=== PATIENT | male | born 1990 | race Caucasian/White ===

== ENCOUNTER 2019-07-28 11:52 | Inpatient (IN) | payer OTHER ==
--- NOTE | 2019-07-28 16:29 | BHS.RME ---
Substance Use & Tx History - Substance Use History Opiates (Heroin) Substance amount: heroin- 1-2 bundles/day Frequency of use: Daily Substance route: Injection (ex: intravenous or skin popping) Date of Last Use: 07/28/19 Cocaine (Powder) Substance amount: 1 gram Substance route: Injection (ex: intravenous or skin popping) Date of Last Use: 07/27/19 Benzodiazepines Substance amount: xanax 3 tabs Frequency of use: Daily Substance route: Oral Date of Last Use: 07/27/19 - Last Treatment Date of last treatment: 06/2019 Where was last treatment: Detox Physical/Psych/Mental Status - Behavior Eye Contact: Normal - Cooperativeness Cooperativeness: Cooperative - Physical Health Problems Is patient presently having any pain?: No Does patient presently have any injuries (include location): No Does patient currently have a fever: No Is patient : No COWS - Scale Resting Pulse: 2= [place] 101-120 Sweatin= Chills/Flushing Restless Observation: 1= Difficult to Sit Still Pupil Size: 1= Pupils >than Normal Bone or Joint Aches: 1= Mild Discomfort Runny Nose/ Eye Tearin= Nasal Congestion GI Upset > 30mins: 2= Nausea/Diarrhea Tremor Observation: 1= Tremor [place], Not Seen Yawning Observation: 1= 1-2x During Session Anxiety or Irritability: 1=Feels Anxious/Irritable Goose Flesh Skin: 3=Piloerection COWS Score: 15 CIWA Nausea/Vomitin-Mild Nausea/No Vomiting Muscle Tremors: 3 Anxiety: 3 Agitation: 3 Paroxysmal Sweats: No Perspiration Orientation: 0-Oriented Tacttile Disturbances: 0-None Auditory Disturbances: 0-None Visual Disturbances: 0-None Headache: 2-Mild CIWA-Ar Total Score: 12 Treatment Recommendation - Level of Care Level of Care: Acute Medical (admit for detox from opiates and xanax)
--- NOTE | 2019-07-28 17:06 | HP ---
COWS - Scale Resting Pulse: 2= [place] 101-120 Sweatin= Chills/Flushing Restless Observation: 1= Difficult to Sit Still Pupil Size: 1= Pupils >than Normal Bone or Joint Aches: 1= Mild Discomfort Runny Nose/ Eye Tearin= Nasal Congestion GI Upset > 30mins: 2= Nausea/Diarrhea Tremor Observation: 1= Tremor [place], Not Seen Yawning Observation: 1= 1-2x During Session Anxiety or Irritability: 1=Feels Anxious/Irritable Goose Flesh Skin: 3=Piloerection COWS Score: 15 CIWA Score Nausea/Vomitin-Mild Nausea/No Vomiting Muscle Tremors: 3 Anxiety: 3 Agitation: 3 Paroxysmal Sweats: No Perspiration Orientation: 0-Oriented Tacttile Disturbances: 1-Very Mild Itch/Numbness Auditory Disturbances: 0-None Visual Disturbances: 0-None Headache: 2-Mild CIWA-Ar Total Score: 13 - Admission Criteria [facility] Guidelines: Admission for Medically Managed Detox: Requires at least one of the followin. CIWA greater than 12 2. Seizures within the past 24 hours 3. Delirium tremens within the past 24 hours 4. Hallucinations within the past 24 hours 5. Acute intervention needed for co occurring medical disorder 6. Acute intervention needed for co occurring psychiatric disorder 7. Severe withdrawal that cannot be handled at a lower level of care (continued vomiting, continued diarrhea, abnormal vital signs) requiring intravenous medication and/or fluids 8. Admitting History and Physical - Admission Chief Complaint: i need help to stop using heroin,xanax,alcohol History of Present Illness: this 29 years old male with heroin alcohol,xanax dependence,seeing detox, withdrawal symptom, withdrawal symptom need help denied seizure denied syncope bipolar disorder,manic depressive History Source: Patient Limitations to Obtaining History: No Limitations - Past Medical History STAFFING AND SCHEDULING COORDINATOR: Yes: Seizure Psych: Yes: Bipolar, Other (ptsd) - Smoking History Smoking history: Current every day smoker Have you smoked in the past 12 months: Yes Aproximately how many cigarettes per day: 20 - Alcohol/Substance Use Hx Alcohol Use: No History of Substance Use: reports: Cocaine, Heroin, Tranquilizers - Social History Usual Living Arrangement: Yes: With Parent ADL: Support Services Occupation: unemployed History of Recent Travel: No Admission ROS BHS - HPI Chief Complaint: i need help to stop using heroin,xanax,alcohol abused Allergies/Adverse Reactions: Allergies Allergy/AdvReac Type Severity Reaction Status Date / Time No Known Allergies Allergy Verified 07/28/19 16:57 History of Present Illness: this 29years old male with heroin,xanax dependence,alcohol abused, seeking help to stop,withdrawal symptom seizure last 2017 syncope bipolar disorder living with mother,unemployed longest period of sobriety 1 year nicotine dependence plan for rehab after detox Exam Limitations: No Limitations - Ebola screening Have you traveled outside of the country in the last 21 days: No Have you had contact with anyone from an Ebola affected area: No Have you been sick,other than usual withdrawal symptoms: No Do you have a fever: No - Review of Systems Constitutional: Chills, Loss of Appetite, Malaise, Night Sweats, Changes in sleep EENT: reports: Tearing, Nose Congestion Respiratory: reports: No Symptoms reported Cardiac: reports: Palpitations GI: reports: Diarrhea, Nausea, Vomiting, Abdominal cramping : reports: No Symptoms Reported, Lesions Musculoskeletal: reports: Joint Pain, Muscle Pain Integumentary: reports: Dryness Neuro: reports: Headache, Tremors Endocrine: reports: No Symptoms Reported Hematology: reports: No Symptoms Reported Psychiatric: reports: No Sypmtoms Reported, Judgement Intact, Mood/Affect Appropiate, Orientated x3, Anxious, Depressed, other (bipolar disorder) Patient History - Patient Medical History Hx Anemia: No Hx Asthma: No Hx Chronic Obstructive Pulmonary Disease (COPD): No Hx Cancer: No Hx Cardiac Disorders: No Hx Congestive Heart Failure: No Hx Hypertension: No Hx Hypercholesterolemia: No Hx Pacemaker: No HX Cerebrovascular Accident: No Hx Seizures: No Hx Dementia: No Hx Diabetes: No Hx Gastrointestinal Disorders: No Hx Liver Disease: No Hx Genitourinary Disorders: No Hx Sexually Transmitted Disorders: No Hx Renal Disease (ESRD): No Hx Thyroid Disease: No Hx Human Immunodeficiency Virus (HIV): No (last 06/2019 negative) Hx Hepatitis C: No Hx Depression: Yes Hx Suicide Attempt: No Hx Bipolar Disorder: Yes Hx Schizophrenia: No Other Medical History: no suicidal.no homicidal,insomnia,ptsd - Patient Surgical History Past Surgical History: No Anesthesia Reaction: No - PPD History Previous Implant?: Yes Documented Results: Negative w/o proof Implanted On Prior [facility] Admission?: Yes Date: 05/04/15 PPD to be Administered?: Yes - Smoking Cessation Smoking history: Current every day smoker Have you smoked in the past 12 months: Yes Aproximately how many cigarettes per day: 20 Cigars Per Day: 0 Hx Chewing Tobacco Use: No Initiated information on smoking cessation: Yes 'Breaking Loose' booklet given: 07/28/19 - Substance & Tx. History Hx Alcohol Use: Yes Hx Substance Use: Yes Substance Use Type: Alcohol, Cocaine, Heroin, Tranquilizers Hx Substance Use Treatment: Yes ([address] [place] [address] but not completed) - Substances abused Heroin Substance route: Injection Frequency: Daily Amount used: 15 to 20 bags Age of first use: 17 Date of last use: 07/27/19 Alprazolam (Xanax) Substance route: Oral Frequency: Daily Amount used: 6 to 8 mgs Age of first use: 16 Date of last use: 07/27/19 Cocaine Substance route: Injection Frequency: 3-6 times per week Amount used: 40$ Age of first use: 17 Date of last use: 07/27/19 Alcohol Substance route: Oral Frequency: 3-6 times per week Amount used: 1 litre of anival Age of first use: 12 Date of last use: 07/27/19 Admission Physical Exam BHS - Vital Signs Vital Signs: Vital Signs Temperature 97.7 F 07/28/19 17:09 Pulse Rate 101 H 07/28/19 17:09 Respiratory Rate 18 07/28/19 17:09 Blood Pressure 140/95 07/28/19 17:09 O2 Sat by Pulse Oximetry (%) - Physical General Appearance: Yes: Moderate Distress, Severe Distress, Alcohol on Breath, Irritable, Anxious HEENTM: Yes: Normal ENT Inspection, [place], Pharynx Normal Respiratory: Yes: Within Normal Limits, Lungs Clear, Normal Breath Sounds Neck: Yes: Within Normal Limits, Supple, Trachea in good position Breast: Yes: Within Normal Limits Cardiology: Yes: Tachycardia Abdominal: Yes: Within Normal Limits, Normal Bowel Sounds, Non Tender, Flat, Soft Genitourinary: Yes: Within Normal Limits Back: Yes: Muscle Spasm Extremities: Yes: Tremors 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, Fully Oriented, Alert, Motor Strength 5/5 Integumentary: Yes: Dry Lymphatic: Yes: Within Normal Limits - Diagnostic (1) Opioid dependence with withdrawal Current Visit: Yes Status: Acute (2) Cocaine dependence Current Visit: No Status: Acute (3) Insomnia Current Visit: No Status: Acute (4) Nicotine dependence Current Visit: No Status: Acute (5) Weight loss Current Visit: No Status: Acute (6) Uncomplicated sedative, hypnotic or anxiolytic withdrawal Current Visit: Yes Status: Acute (7) Cocaine dependence Current Visit: Yes Status: Acute (8) Withdrawal seizures Current Visit: Yes Status: Acute (9) Bipolar disorder Current Visit: Yes Status: Acute (10) PTSD (post-traumatic stress disorder) Current Visit: Yes Status: Acute (11) IVDU (intravenous drug user) Current Visit: Yes Status: Acute Cleared for Admission S - Detox or Rehab S Level of Care: Medically Managed Detox Regimen/Protocol: Methadone/Valium Breathalyzer - Breathalyzer Breathalyzer: 0 Urine Drug Screen - Test Device Lot number: [id number] Expiration date: 05/06/21 - Control Is test valid?: Yes - Results Drug screen NEGATIVE: No Urine drug screen results: DAISHA-Cocaine, FEN-Fentanyl, MOP-Opiates, BZO- Benzodiazepines Inpatient Rehab Admission - Rehab Decision to Admit Inpatient rehab admission?: No
[2019-07-28 17:15] VITALS: BMI 25.1
[2019-07-28] MEDS ORDERED: ACETAMINOPHEN 325 MG TABLET (FP) PO PRN ×2 (17:22)
[2019-07-28] MEDS ORDERED: cloNIDine HCL 0.1 MG TABLET PO PRN (17:22)
[2019-07-28] MEDS ORDERED: BISMUTH SUBSALICYLATE 524 MG/30 ML UD PO PRN (17:22)
[2019-07-28] MEDS ORDERED: MENTHOL/PHENOL 1 EACH UD MM PRN (17:22)
[2019-07-28] MEDS ORDERED: IBUPROFEN 400 MG TABLET (FP) PO PRN (17:22)
[2019-07-28] MEDS ORDERED: METHADONE HCL 10 MG TABLET (FOR DETOX USE ONLY) PO ONE (17:22)
[2019-07-28] MEDS ORDERED: MAG HYDROX/AL HYDROX/SIMETH 30 ML UNIT-DOSE CUP PO PRN (17:22)
[2019-07-28] MEDS ORDERED: MAGNESIUM HYDROX 2400MG/30ML ORAL SUSPENSION 30 ML CUP PO PRN (17:22)
[2019-07-28] MEDS ORDERED: MAGNESIUM CITRATE 300 ML BOTTLE PO PRN (17:22)
[2019-07-28] MEDS: NICOTINE 21 MG/24 HOURS TOPICAL PATCH TD SCH (18:33)
[2019-07-28] MEDS: diazePAM 5 MG TABLET PO PRN (18:36)
[2019-07-28] MEDS: NICOTINE POLACRILEX 2 MG GUM BUC PRN ×2 (18:42→22:45)
[2019-07-28] MEDS: diazePAM 5 MG TABLET PO SCH (22:43)
[2019-07-28] MEDS: THIAMINE HCL 100 MG TABLET (FP) PO SCH (22:43)
[2019-07-28] MEDS: MELATONIN 5 MG TABLETS PO PRN (22:46)
[2019-07-29] MEDS: diazePAM 5 MG TABLET PO SCH ×3 (05:50→22:08)
[2019-07-29] MEDS: hydrOXYzine PAMOATE 25 MG CAPSULE (FP) PO PRN ×2 (06:12→20:00)
[2019-07-29] MEDS ORDERED: METHADONE HCL 10 MG TABLET (FOR DETOX USE ONLY) ONE (09:02)
[2019-07-29] MEDS ORDERED: METHADONE HCL 5 MG TABLET (FOR DETOX USE ONLY) ONE (09:03)
[2019-07-29] MEDS: PRENATAL VITAMINS W/ FOLIC ACID TABLET (FP) PO SCH (09:39)
[2019-07-29] MEDS: diazePAM 5 MG TABLET PO PRN ×2 (09:40→17:13)
[2019-07-29] MEDS: NICOTINE 21 MG/24 HOURS TOPICAL PATCH TD SCH (09:40)
[2019-07-29] MEDS: NICOTINE POLACRILEX 2 MG GUM BUC PRN ×2 (09:44→17:45)
[2019-07-29] MEDS ORDERED: METHADONE (DETOX) 20 MG, METHADONE (DETOX) 5 MG PO ONE (10:00)
[2019-07-29 10:15] LABS: ALBUMIN 3.5 g/dl (3.4-5.0); BILIRUBIN,TOTAL 0.3 mg/dL (0.2-1); BLOOD UREA NITROGEN 18.3 mg/dL (7-18); CALCIUM 8.8 mg/dL (8.5-10.1); CREATININE 0.7 mg/dL (0.55-1.3); POTASSIUM 4.1 mmol/L (3.5-5.1); TOT PROT 6.4 g/dl (6.4-8.2)
[2019-07-29 10:22] LABS: HEMATOCRIT 37.3 % (35.4-49); HEMOGLOBIN 12.9 GM/dL (11.7-16.9); MCH 31.6 pg (25.7-33.7); MCHC 34.6 g/dl (32.0-35.9); MEAN CELL VOLUME 91.3 fl (80-96); MEAN PLT VOLUME 8.4 fl (7.5-11.1); PLATELET COUNT 223 K/MM3 (134-434); RBC 4.08 M/mm3 (4.00-5.60); RDW 12.8 % (11.9-15.9); WHITE BLOOD COUNT 5.8 K/mm3 (4.0-10.0)
--- NOTE | 2019-07-29 12:54 | CONSULT ---
[facility] Psychiatric Consult - Data Date of interview: 07/29/19 Admission source: [facility] Identifying data: Revisit to [facility] and admission to [address] [place] [address] for this 29 y/o -[place] male self-referred for detoxification treatment. NANCY issues : heroin, benzodiazepine (xanax), alcohol, cocaine, cannabis, nicotine. Patient is , no children of his own, domiciled, unemployed and supported by spouse + relatives. Substance Abuse History: Discussed with patient. Details in current [facility] report as follows : Smoking history: Current every day smoker. Have you smoked in the past 12 months: Yes. Aproximately how many cigarettes per day: 20. Cigars Per Day: 0. Hx Chewing Tobacco Use: No. Initiated information on smoking cessation : Yes. 'Breaking Loose' booklet given: 07/28/19. - Substance & Tx. History. Hx Alcohol Use: Yes. Hx Substance Use: Yes. Substance Use Type: Alcohol, Cocaine, Heroin, Tranquilizers. Hx Substance Use Treatment: Yes ([address] [place], [place] [address] but not completed). - Substances abused. Heroin. Substance route: Injection. Frequency: Daily. Amount used: 15 to 20 bags. Age of first use: 17. Date of last use: 07/27/19. Alprazolam (Xanax). Substance route: Oral. Frequency: Daily. Amount used: 6 to 8 mgs. Age of first use: 16. Date of last use: 07/27/19. Cocaine. Substance route: Injection. Frequency : 3-6 times per week. Amount used: 40$. Age of first use: 17. Date of last use: 07/27/19. Alcohol. Substance route: Oral. Frequency: 3-6 times per week. Amount used: 1 litre of anival. Age of first use: 12. Date of last use: 07/27/19 Medical History: Patient endorses good general health. Psychiatric History: Patient endorses a distant history of one psychiatric hospitalization (age 17) at the [facility]. Mr Jaquez indicates that he was diagnosed with MDD, Anxiety Disorder and PTSD. Used to be on suboxone maintenance and trazodone + lorazepam. Non-compliant with medications for weeks. Patient denies having contact with OPD care providers. Denies history of suicide attempts. Physical/Sexual Abuse/Trauma History: Patient denies. Additional Comment: Urine drug screen results: DAISHA-Cocaine, FEN-Fentanyl, MOP- Opiates, BZO-Benzodiazepines. Noted. Mental Status Exam - Mental Status Exam Alert and Oriented to: Time, Place, Person Cognitive Function: Good Patient Appearance: Well Groomed Mood: Withdrawn Affect: Mood Congruent Patient Behavior: Fatigued, Appropriate, Cooperative Speech Pattern: Clear, Appropriate Voice Loudness: Normal Thought Process: Goal Oriented Thought Disorder: Not Present Hallucinations: Denies Suicidal Ideation: Denies Homicidal Ideation: Denies Insight/Judgement: Poor Sleep: Poorly, Difficulty falling asleep Appetite: Good Gait/Station: Normal Psychiatric Findings - Problem List ([place] 1, 2,3) (1) Alcohol use disorder Current Visit: Yes Status: Chronic (2) Opioid dependence with withdrawal Current Visit: Yes Status: Acute (3) Uncomplicated sedative, hypnotic or anxiolytic withdrawal Current Visit: Yes Status: Acute (4) Cocaine dependence Current Visit: Yes Status: Chronic (5) Cannabis dependence Current Visit: Yes Status: Chronic (6) Nicotine dependence Current Visit: Yes Status: Chronic (7) Substance induced mood disorder Current Visit: Yes Status: Chronic (8) History of posttraumatic stress disorder (PTSD) Current Visit: Yes Status: Chronic Comment: As per self-report. Asymptomatic at time of this examination. (9) Insomnia Current Visit: Yes Status: Chronic (10) Non-compliance Current Visit: Yes Status: Chronic Comment: Lost to follow-up. - Initial Treatment Plan Initial Treatment Plan: Psychoeducation. Sleep hygiene. Detoxification. AA/NA meetings. MAT services discussed in this session. Patient agrees only to detoxification protocol. Informed consent given. Observation.
--- NOTE | 2019-07-29 13:14 | PN ---
[facility] CIWA - CIWA Score Nausea/Vomitin-Mild Nausea/No Vomiting Muscle Tremors: 3 Anxiety: 3 Agitation: 1-Slight > Activity Paroxysmal Sweats: 2 Orientation: 0-Oriented Tacttile Disturbances: 0-None Auditory Disturbances: 0-None Visual Disturbances: 1-Very Mild Sensitivity Headache: 1-Very Mild CIWA-Ar Total Score: 12 S COWS - Scale Resting Pulse: 1= [place] 81-100 Sweatin= Chills/Flushing Restless Observation: 0= Sits Still Pupil Size: 1= Pupils >than Normal Bone or Joint Aches: 0= None Runny Nose/ Eye Tearin= None GI Upset > 30mins: 2= Nausea/Diarrhea Tremor Observation of Outstretched Hands: 2= Slight Tremor Visible Yawning Observation: 0= None Anxiety or Irritability: 2=Irritable/Anxious Goose Flesh Skin: 3=Piloerection COWS Score: 12 S Progress Note (SOAP) Subjective: 29 years old male admitted on 07/28/19 for alcohol benzo opiate withdrawal sx management patient requests librium for alcohol withdrawal that the patient is taking valium for benzo withdrawal patient refuses to give up valium patient wants valium and librium health teaching on risks of benzo Objective: 07/29/19 13:15 Vital Signs Temperature 97.8 F 07/29/19 08:36 Pulse Rate 86 07/29/19 08:36 Respiratory Rate 18 07/29/19 08:36 Blood Pressure 117/78 07/29/19 08:36 O2 Sat by Pulse Oximetry (%) Laboratory Last Values WBC 5.8 K/mm3 (4.0-10.0) 07/29/19 07:30 RBC 4.08 M/mm3 (4.00-5.60) 07/29/19 07:30 Hgb 12.9 GM/dL (11.7-16.9) 07/29/19 07:30 Hct 37.3 % (35.4-49) 07/29/19 07:30 MCV 91.3 fl (80-96) 07/29/19 07:30 MCH 31.6 pg (25.7-33.7) 07/29/19 07:30 MCHC 34.6 g/dl (32.0-35.9) 07/29/19 07:30 RDW 12.8 % (11.9-15.9) 07/29/19 07:30 Plt Count 223 K/MM3 (134-434) 07/29/19 07:30 MPV 8.4 fl (7.5-11.1) 07/29/19 07:30 Sodium 141 mmol/L (136-145) 07/29/19 07:30 Potassium 4.1 mmol/L (3.5-5.1) 07/29/19 07:30 Chloride 107 mmol/L (98-107) 07/29/19 07:30 Carbon Dioxide 31 mmol/L (21-32) 07/29/19 07:30 Anion Gap 3 MMOL/L (8-16) L 07/29/19 07:30 BUN 18.3 mg/dL (7-18) H 07/29/19 07:30 Creatinine 0.7 mg/dL (0.55-1.3) 07/29/19 07:30 Est GFR (CKD-EPI)AfAm 146.77 07/29/19 07:30 Est GFR (CKD-EPI)NonAf 126.64 07/29/19 07:30 Random Glucose 93 mg/dL (74-106) 07/29/19 07:30 Calcium 8.8 mg/dL (8.5-10.1) 07/29/19 07:30 Total Bilirubin 0.3 mg/dL (0.2-1) 07/29/19 07:30 AST 24 U/L (15-37) 07/29/19 07:30 ALT 23 U/L (13-61) 07/29/19 07:30 Alkaline Phosphatase 124 U/L (45-117) H 07/29/19 07:30 Total Protein 6.4 g/dl (6.4-8.2) 07/29/19 07:30 Albumin 3.5 g/dl (3.4-5.0) 07/29/19 07:30 RPR Titer Nonreactive (NONREACTIVE) 07/29/19 07:30 lab noted Assessment: 07/29/19 13:15 alcohol benzo opiate withdrawal Plan: valium and methadone regiments
[2019-07-29] MEDS: METHOCARBAMOL 500 MG TABLET PO PRN (17:14)
[2019-07-29] MEDS: MIRTAZAPINE 15 MG TABLET (FP) PO SCH (22:08)
[2019-07-29] MEDS: THIAMINE HCL 100 MG TABLET (FP) PO SCH (22:08)
[2019-07-29] MEDS: MELATONIN 5 MG TABLETS PO PRN (22:08)
[2019-07-30] MEDS: diazePAM 5 MG TABLET PO SCH ×2 (05:52→17:47)
[2019-07-30] MEDS ORDERED: METHADONE HCL 10 MG TABLET (FOR DETOX USE ONLY) PO ONE (10:00)
[2019-07-30] MEDS: diazePAM 5 MG TABLET PO PRN ×3 (10:16→22:16)
[2019-07-30] MEDS: PRENATAL VITAMINS W/ FOLIC ACID TABLET (FP) PO SCH (10:16)
[2019-07-30] MEDS: NICOTINE 21 MG/24 HOURS TOPICAL PATCH TD SCH (10:17)
--- NOTE | 2019-07-30 11:08 | PN ---
[facility] CIWA - CIWA Score Nausea/Vomitin-Mild Nausea/No Vomiting Muscle Tremors: 2 Anxiety: 1-Mildly Anxious Agitation: 1-Slight > Activity Paroxysmal Sweats: 1-Minimal Palms Moist Orientation: 0-Oriented Tacttile Disturbances: 0-None Auditory Disturbances: 0-None Visual Disturbances: 0-None Headache: 1-Very Mild CIWA-Ar Total Score: 7 S COWS - Scale Resting Pulse: 1= [place] 81-100 Sweatin= Chills/Flushing Restless Observation: 1= Difficult to Sit Still Pupil Size: 1= Pupils >than Normal Bone or Joint Aches: 1= Mild Discomfort Runny Nose/ Eye Tearin= Nasal Congestion GI Upset > 30mins: 1= Stomach Cramp Tremor Observation of Outstretched Hands: 1= Tremor [place], Not Seen Yawning Observation: 1= 1-2x During Session Anxiety or Irritability: 1=Feels Anxious/Irritable Goose Flesh Skin: 0=Smooth Skin COWS Score: [address] [facility] Progress Note (SOAP) Subjective: pt here for detox from benzo and opiates, says he has trouble sleeping O: Vital Signs - 24 hr 07/29/19 07/29/19 07/29/19 12:38 16:45 20:46 Temperature 96.7 F L 97.4 F L 96.1 F L Pulse Rate 88 79 85 Respiratory 18 18 18 Rate Blood Pressure 104/67 124/72 109/77 07/30/19 07/30/19 07/30/19 00:30 03:30 06:08 Temperature 97.2 F L Pulse Rate 63 Respiratory 18 18 18 Rate Blood Pressure 98/61 07/30/19 07/30/19 06:30 08:36 Temperature 97.4 F L Pulse Rate 78 Respiratory 18 18 Rate Blood Pressure 97/67 Laboratory Tests 07/29/19 07/29/19 07/29/19 07:30 07:30 07:30 WBC 5.8 RBC 4.08 Hgb 12.9 Hct 37.3 MCV 91.3 MCH 31.6 MCHC 34.6 RDW 12.8 Plt Count 223 MPV 8.4 Sodium 141 Potassium 4.1 Chloride 107 Carbon Dioxide 31 Anion Gap 3 L BUN 18.3 H Creatinine 0.7 Est GFR (CKD-EPI)AfAm 146.77 Est GFR (CKD-EPI)NonAf 126.64 Random Glucose 93 Calcium 8.8 Total Bilirubin 0.3 AST 24 ALT 23 Alkaline Phosphatase 124 H Total Protein 6.4 Albumin 3.5 RPR Titer Nonreactive a/p: continue detox protocols trazodone prn for sleep, if melatonin does not work
[2019-07-30] MEDS: hydrOXYzine PAMOATE 25 MG CAPSULE (FP) PO PRN (15:39)
[2019-07-30] MEDS: METHOCARBAMOL 500 MG TABLET PO PRN ×2 (15:39→22:16)
[2019-07-30] MEDS: MIRTAZAPINE 15 MG TABLET (FP) PO SCH (22:13)
[2019-07-30] MEDS: THIAMINE HCL 100 MG TABLET (FP) PO SCH (22:13)
[2019-07-30] MEDS: MELATONIN 5 MG TABLETS PO PRN (22:16)
[2019-07-31] MEDS: METHOCARBAMOL 500 MG TABLET PO PRN ×3 (05:41→22:12)
[2019-07-31] MEDS ORDERED: diazePAM 5 MG TABLET PO ONE (06:00)
[2019-07-31] MEDS ORDERED: METHADONE HCL 10 MG TABLET (FOR DETOX USE ONLY) ONE (09:02)
[2019-07-31] MEDS ORDERED: METHADONE HCL 5 MG TABLET (FOR DETOX USE ONLY) ONE (09:02)
[2019-07-31] MEDS ORDERED: METHADONE (DETOX) 10 MG, METHADONE (DETOX) 5 MG PO ONE (10:00)
[2019-07-31] MEDS: diazePAM 5 MG TABLET PO PRN ×2 (10:14→15:46)
[2019-07-31] MEDS: PRENATAL VITAMINS W/ FOLIC ACID TABLET (FP) PO SCH (10:14)
[2019-07-31] MEDS: NICOTINE 21 MG/24 HOURS TOPICAL PATCH TD SCH (10:15)
[2019-07-31] MEDS: NICOTINE POLACRILEX 2 MG GUM BUC PRN ×2 (10:17→12:54)
--- NOTE | 2019-07-31 13:55 | PN ---
S CIWA - CIWA Score Nausea/Vomitin-No Nausea/No Vomiting Muscle Tremors: 2 Anxiety: 2 Agitation: 0-Normal Activity Paroxysmal Sweats: 2 Orientation: 0-Oriented Tacttile Disturbances: 0-None Auditory Disturbances: 0-None Visual Disturbances: 0-None Headache: 0-None Present CIWA-Ar Total Score: 6 [facility] COWS - Scale Resting Pulse: 1= [place] 81-100 Sweatin= Chills/Flushing Restless Observation: 0= Sits Still Pupil Size: 1= Pupils >than Normal Bone or Joint Aches: 1= Mild Discomfort Runny Nose/ Eye Tearin= None GI Upset > 30mins: 0= None Tremor Observation of Outstretched Hands: 1= Tremor [place], Not Seen Yawning Observation: 0= None Anxiety or Irritability: 1=Feels Anxious/Irritable Goose Flesh Skin: 0=Smooth Skin COWS Score: 6 S Progress Note (SOAP) Subjective: 29 years old male admitted on 07/28/19 for alcohol benzo opiate withdrawal sx management treating with valium and methadone detox regiment feeling ok today ate breakfast and lunch in day room social with peers attending behavior and psychosocial therapies Objective: 07/31/19 13:56 Vital Signs Temperature 97.4 F L 07/31/19 12:40 Pulse Rate 90 07/31/19 12:40 Respiratory Rate 20 07/31/19 12:40 Blood Pressure 105/71 07/31/19 12:40 O2 Sat by Pulse Oximetry (%) Laboratory Last Values WBC 5.8 K/mm3 (4.0-10.0) 07/29/19 07:30 RBC 4.08 M/mm3 (4.00-5.60) 07/29/19 07:30 Hgb 12.9 GM/dL (11.7-16.9) 07/29/19 07:30 Hct 37.3 % (35.4-49) 07/29/19 07:30 MCV 91.3 fl (80-96) 07/29/19 07:30 MCH 31.6 pg (25.7-33.7) 07/29/19 07:30 MCHC 34.6 g/dl (32.0-35.9) 07/29/19 07:30 RDW 12.8 % (11.9-15.9) 07/29/19 07:30 Plt Count 223 K/MM3 (134-434) 07/29/19 07:30 MPV 8.4 fl (7.5-11.1) 07/29/19 07:30 Sodium 141 mmol/L (136-145) 07/29/19 07:30 Potassium 4.1 mmol/L (3.5-5.1) 07/29/19 07:30 Chloride 107 mmol/L (98-107) 07/29/19 07:30 Carbon Dioxide 31 mmol/L (21-32) 07/29/19 07:30 Anion Gap 3 MMOL/L (8-16) L 07/29/19 07:30 BUN 18.3 mg/dL (7-18) H 07/29/19 07:30 Creatinine 0.7 mg/dL (0.55-1.3) 07/29/19 07:30 Est GFR (CKD-EPI)AfAm 146.77 07/29/19 07:30 Est GFR (CKD-EPI)NonAf 126.64 07/29/19 07:30 POC Glucometer 129 UNITS (80-120) 07/30/19 13:32 Random Glucose 93 mg/dL (74-106) 07/29/19 07:30 Calcium 8.8 mg/dL (8.5-10.1) 07/29/19 07:30 Total Bilirubin 0.3 mg/dL (0.2-1) 07/29/19 07:30 AST 24 U/L (15-37) 07/29/19 07:30 ALT 23 U/L (13-61) 07/29/19 07:30 Alkaline Phosphatase 124 U/L (45-117) H 07/29/19 07:30 Total Protein 6.4 g/dl (6.4-8.2) 07/29/19 07:30 Albumin 3.5 g/dl (3.4-5.0) 07/29/19 07:30 RPR Titer Nonreactive (NONREACTIVE) 07/29/19 07:30 lab noted Assessment: 07/31/19 13:56 alcohol benzo opiate withdrawal Plan: valium and methadone regiments
[2019-07-31] MEDS: THIAMINE HCL 100 MG TABLET (FP) PO SCH (22:10)
[2019-07-31] MEDS: MIRTAZAPINE 15 MG TABLET (FP) PO SCH (22:10)
[2019-07-31] MEDS: hydrOXYzine PAMOATE 25 MG CAPSULE (FP) PO PRN (22:11)
[2019-07-31] MEDS: MELATONIN 5 MG TABLETS PO PRN (22:11)
[2019-08-01] MEDS: hydrOXYzine PAMOATE 25 MG CAPSULE (FP) PO PRN (06:10)
[2019-08-01] MEDS ORDERED: METHADONE HCL 10 MG TABLET (FOR DETOX USE ONLY) PO ONE (10:00)
[2019-08-01] MEDS: PRENATAL VITAMINS W/ FOLIC ACID TABLET (FP) PO SCH (10:13)
[2019-08-01] MEDS: NICOTINE 21 MG/24 HOURS TOPICAL PATCH TD SCH (10:13)
[2019-08-01] MEDS: METHOCARBAMOL 500 MG TABLET PO PRN ×2 (10:13→22:09)
[2019-08-01] MEDS: NICOTINE POLACRILEX 2 MG GUM BUC PRN (10:15)
--- NOTE | 2019-08-01 11:17 | PN ---
[facility] CIWA - CIWA Score Nausea/Vomitin-No Nausea/No Vomiting Muscle Tremors: 1-None Visible, but [place] Anxiety: 1-Mildly Anxious Agitation: 1-Slight > Activity Paroxysmal Sweats: No Perspiration Orientation: 0-Oriented Tacttile Disturbances: 1-Very Mild Itch/Numbness Auditory Disturbances: 0-None Visual Disturbances: 0-None Headache: 1-Very Mild CIWA-Ar Total Score: 5 [facility] COWS - Scale Resting Pulse: 0= [place] 80 or Below Sweatin= No chills or Flushing Restless Observation: 1= Difficult to Sit Still Pupil Size: 1= Pupils >than Normal Bone or Joint Aches: 1= Mild Discomfort Runny Nose/ Eye Tearin= Nasal Congestion GI Upset > 30mins: 1= Stomach Cramp Tremor Observation of Outstretched Hands: 1= Tremor [place], Not Seen Yawning Observation: 1= 1-2x During Session Anxiety or Irritability: 1=Feels Anxious/Irritable Goose Flesh Skin: 0=Smooth Skin COWS Score: 8 [facility] Progress Note (SOAP) Subjective: alert,irritable,anxious,interrupted sleep,pain in the body Objective: 08/01/19 11:16 Vital Signs Temperature 98.1 F 08/01/19 08:43 Pulse Rate 75 08/01/19 08:43 Respiratory Rate 18 08/01/19 08:43 Blood Pressure 104/65 08/01/19 08:43 O2 Sat by Pulse Oximetry (%) Assessment: 08/01/19 11:16 withdrawal symptom Plan: continue detox methadone and valium regimen,discharge on 0700 on 08/02/2019
[2019-08-01 20:31] LABS: PH,URINE 5.5 (5.0-8.0); URINE APPEARANCE TURBID; URINE BILIRUBIN NEGATIVE (NEGATIVE); URINE COLOR DK YELLOW; URINE GLUCOSE (UA) NEGATIVE (NEGATIVE); URINE KETONE TRACE (NEGATIVE); URINE LEUK ESTERASE NEGATIVE (NEGATIVE); URINE NITRITE NEGATIVE (NEGATIVE); URINE PROTEIN NEGATIVE (NEGATIVE)
[2019-08-01 21:17] VITALS: TEMP 97.5
[2019-08-01] MEDS: THIAMINE HCL 100 MG TABLET (FP) PO SCH (22:09)
[2019-08-01] MEDS: MIRTAZAPINE 15 MG TABLET (FP) PO SCH (22:09)
[2019-08-01] MEDS: MELATONIN 5 MG TABLETS PO PRN (22:11)
[2019-08-02] MEDS ORDERED: METHADONE HCL 5 MG TABLET (FOR DETOX USE ONLY) PO ONE (06:00)
[2019-08-02 06:20] VITALS: PULSE 73
[2019-08-02 07:09] VITALS: BP 109/74
--- NOTE | 2019-08-02 10:43 | DS ---
[facility] Detox Discharge Summary Admission Date: 07/28/19 Discharge Date: 08/02/19 - History Present History: Opioid Dependence, Sedative Dependence Pertinent Past History: 29 yo gentleman admitted to detox with a hx of benzodiazepine and opiate use disorder. Pt successfully detoxed with methadone. - Physical Exam Results Vital Signs: Vital Signs Temperature 97.5 F L 08/01/19 21:16 Pulse Rate 73 08/02/19 05:31 Respiratory Rate 18 08/02/19 05:31 Blood Pressure 109/74 08/02/19 07:08 O2 Sat by Pulse Oximetry (%) Pertinent Admission Physical Exam Findings: PE gnl: wdwn in no distress Mental status; nl CV HR 74 Coordination: nl - Treatment Hospital Course: Detox Protocol Followed, Detoxed Safely, Responded well, Discharged Condition Good, Rehab Referral Accepted - Medication Discharge Medications: Ambulatory Orders Quetiapine Fumarate [Seroquel -] 50 mg PO BID 07/28/19 traZODone HCL [Trazodone HCl] 50 mg PO HS 07/28/19 - AMA Did Patient Leave Against Medical Advice: No
== END 2019-08-02 08:42 | disposition home or self-care (01) | DRG 773 ==
LOC: EDBD → YASAS 11:52 → Y3N 17:23
PROVIDERS: ADMIT Allergy & Immunology; ATTEND Allergy & Immunology
PROC: HZ2ZZZZ Detoxification Services for Substance Abuse Treatment (ICD-10-PCS; principal; 2019-07-28)
DX: F11.23 Opioid dependence with withdrawal (principal); F13.230 Sedative, hypnotic or anxiolytic dependence with withdrawal, uncomplicated; F10.10 Alcohol abuse, uncomplicated; F14.20 Cocaine dependence, uncomplicated; F12.20 Cannabis dependence, uncomplicated; F17.210 Nicotine dependence, cigarettes, uncomplicated; F19.24 Other psychoactive substance dependence with psychoactive substance-induced mood disorder; F31.9 Bipolar disorder, unspecified; F43.10 Post-traumatic stress disorder, unspecified; F41.9 Anxiety disorder, unspecified; R63.4 Abnormal weight loss; G40.509 Epileptic seizures related to external causes, not intractable, without status epilepticus; Z68.25 Body mass index [BMI] 25.0-25.9, adult; Z91.19 Patient's noncompliance with other medical treatment and regimen
CPT/HCPCS: 36415; 80053; 81003; 82962; 85027; 86593